=== PATIENT | male | born 1945 | race Caucasian/White ===

== ENCOUNTER → 2020-04-17 10:24 | Outpatient (CLI) | payer MEDICARE, OTHER, SELFPAY ==
--- NOTE | 2020-04-17 10:39 | DI.RAD.S_ITS ---
PROCEDURE: XR WRIST RT MIN 3V INDICATIONS: BI WRIST AND HAND PAIN/ARTHRITIS TECHNIQUE: For views of the wrist were acquired. COMPARISON: None. FINDINGS: Bones: No fractures or dislocations. No suspicious bony lesions. Severe narrowing of the radiocarpal joint. Widening of the scapholunate interval. Scaphoid view: Intact scaphoid. Soft tissues: No suspicious soft tissue calcifications. IMPRESSION: 1. Severe narrowing of the radiocarpal joint. 2. Widening of the scapholunate interval suggesting ligamentous injury. If indicated, MRI could be performed. performed. Dictated by: Arnulfo Riley [facility] Interpreted: Rancho Mobley MD on 04/17/2020 at 11:08 Approved by: Rancho Mobley M.D. on 04/17/2020 at 11:42
--- NOTE | 2020-04-17 10:39 | DI.RAD.S_ITS ---
PROCEDURE: XR WRIST LT MIN 3V INDICATIONS: BI WRIST AND HAND PAIN/ARTHRITIS TECHNIQUE: 4 views of the wrist were acquired. COMPARISON: [facility], CR, XR HAND LT MIN 3V, 04/17/2020, 10:34. FINDINGS: Bones: No fractures or dislocations. No suspicious bony lesions. Moderate narrowing of the radiocarpal joint and widening of the scapholunate interval. Scaphoid view: Intact scaphoid. Soft tissues: No suspicious soft tissue calcifications. IMPRESSION: 1. Osteoarthritic changes, most notably involving the radiocarpal joint. 2. Widening of the scapholunate interval suggesting ligamentous injury. If indicated, MRI could be performed. Dictated by: Arnulfo Riley [facility] Interpreted: Rancho Mobley MD on 04/17/2020 at 11:09 Approved by: Rancho Mobley M.D. on 04/17/2020 at 11:42
--- NOTE | 2020-04-17 10:40 | DI.RAD.S_ITS ---
PROCEDURE: XR HAND LT MIN 3V INDICATIONS: ANDREW WRIST/HAND PAIN/ARTHRITIS TECHNIQUE: 3 views of the hand(s) acquired. COMPARISON: None. FINDINGS: Bones: No fractures or dislocations. Carpal bones are normally aligned. No suspicious bony lesions. Diffuse joint narrowing with periarticular osteophyte formation, most notably involving the radiocarpal joint. Widening of the scapholunate interval. Soft tissues: No suspicious soft tissue calcifications. IMPRESSION: 1. Widening of the scapholunate interval suggesting ligamentous injury. If indicated, MRI could be performed for further assessment. 2. Diffuse joint degeneration, most notably involving the radiocarpal joint. Dictated by: Arnulfo Riley [facility] Interpreted: Rancho Mobley MD on 04/17/2020 at 11:06 Approved by: Rancho Mobley M.D. on 04/17/2020 at 11:41
--- NOTE | 2020-04-17 10:40 | DI.RAD.S_ITS ---
PROCEDURE: XR HAND RT MIN 3V INDICATIONS: BI WRIST AND HAND PAIN/ARTHRITUS TECHNIQUE: 3 views of the hand(s) acquired. COMPARISON: None. FINDINGS: Bones: No fractures or dislocations. Carpal bones are normally aligned. No suspicious bony lesions. Diffuse joint narrowing with periarticular osteophyte formation, most notably and severe involving the radiocarpal joint with [id number] contact. Soft tissues: No suspicious soft tissue calcifications. IMPRESSION: Severe widening of the scapholunate interval suggesting ligamentous injury. If indicated, MRI could be performed for further assessment. Diffuse joint degeneration, severe involving the radiocarpal joint. Dictated by: Arnulfo Riley [facility] Interpreted: Rancho Mobley MD on 04/17/2020 at 11:03 Approved by: Rancho Mobley M.D. on 04/17/2020 at 11:41
== END ==
PROVIDERS: PCP Family Medicine; Referring Provider Family Medicine; Visit Provider Family Medicine
DX: M13.831 Other specified arthritis, right wrist (principal); M13.832 Other specified arthritis, left wrist; M25.531 Pain in right wrist; M25.532 Pain in left wrist; M25.541 Pain in joints of right hand; M25.542 Pain in joints of left hand
CPT/HCPCS: 73110; 73130

== ENCOUNTER 2022-10-29 12:37 | Inpatient (IN) | payer OTHER, SELFPAY ==
[2022-10-21 09:57] VITALS: BMI 35.7
[2022-10-29] VITALS (12 sets, daily range): BP systolic 111–162; BP diastolic 42–85; PULSE 66–96; RESP 11–18; TEMP 35.8–36.7; O2SAT 93–98; BMI 36.9
--- NOTE | 2022-10-29 | DI.RAD.S_ITS ---
PROCEDURE: XR HIP W PEL IF DONE LT 2V INDICATIONS: POST OP TECHNIQUE: 2 view(s) of the hip acquired. COMPARISON: None. FINDINGS: Bones: Patient is status post left hip arthroplasty, with hardware components in expected positions. The hip joint appears congruent. The visualized bony structures appear intact. Soft tissues: Overlying postoperative changes are noted. No suspicious soft tissue densities. IMPRESSION: Expected appearance of left hip arthroplasty. Dictated by: Naomie Ignacio M.D. on 10/29/2022 at 18:04 Approved by: Naomie Ignacio M.D. on 10/29/2022 at 18:04
--- NOTE | 2022-10-29 08:06 | DI.RAD.S_ITS ---
PROCEDURE: XR PELVIS 1-2V INDICATIONS: HELGA TECHNIQUE: Intra-operative view of the pelvis and hip acquired. COMPARISON: None. FINDINGS: Bones: Intraoperative devices prior to placement of arthroplasty prostheses are in expected positions. No fractures or suspicious bony lesions. Soft tissues: Overlying surgical retractors are present, along with other intraoperative changes. IMPRESSION: Imaging obtained during performance of total left hip arthroplasty. No radiographic evidence of complications. Dictated by: Santhosh Carlson M.D. on 10/29/2022 at 17:11 Approved by: Santhosh Carlson M.D. on 10/29/2022 at 17:11
[2022-10-29] MEDS: LACTATED RINGERS 1,000 ML 125 ML IV ×4 (13:15→22:43)
[2022-10-29 13:30] LABS: COVID19 -Nasal RAPID Negative (Negative)
[2022-10-29] MEDS: CELECOXIB 200 MG CAPSULE PO (13:31)
[2022-10-29] MEDS: VANCOMYCIN 1,000 MG/200 ML PIGGYBACK 200 MG IV (13:31)
[2022-10-29] MEDS: ACETAMINOPHEN 325 MG TABLET 975 MG PO (13:31)
--- NOTE | 2022-10-29 14:33 | PM.PREOP ---
Pre-operative Note Interval Note History & Physical reviewed/Exam performed by Physician: Yes Changes to H&P: No
--- NOTE | 2022-10-29 14:33 | PM.OP.1 ---
Operative Date/Time/Diagnoses Date of procedure: 10/29/22 Time of procedure: 14:33 Pre-op diagnosis: left hip AVN Post-op diagnosis: same Procedure & Clinicians Procedure: Left total hip arthroplasty posterior approach Same procedure as scheduled: Yes Indications: The patient has had progressively worsening left hip pain with radiographic changes consistent with arthritis. Non-operative management has failed and the patient has requested total hip replacement. The risks, benefits and alternatives to surgery were discussed with the patient prior to proceeding. Risks discussed included, but were not limited to, failure to relieve pain, leg length discrepancy, dislocation, stiffness, infection, nerve damage, deep venous thrombosis, pulmonary embolism, stroke, coma, heart attack, permanent paralysis and , as well as the potential need for eventual revision of the prosthetic. Surgeon: Margoth Lofton Entry Level Manufacturing Engineer: Ivonne Arias Anesthesia Type: General and Spinal Operative Notes Findings: Small canal, severe destruction of the left femoral head, adequate bone, adequate stability Closure Type: primary Specimen(s): none sent Prosthetic devices, grafts, tissues, transplants, or devices: Lofton and nephew anthology A size 9 high offset, 54 mm R3 cup, neutral poly liner, one 6.5 mm screw, 36+ 0 cobalt chrome head Estimated Blood Loss (mL): 250 Blood products transfused: none Procedure in detail: The patient was seen in the pre-operative area, where the patient identified the left hip as the operative site and this was marked with my initials. The patient received pre-operative antibiotics and was taken to the operating room and placed on the operative table in the right lateral decubitus position after satisfactory anesthesia. A hospital clerk out? was performed. The left leg was prepared from the ankle to the iliac crest with ChloroPrep in the usual fashion and draped through sterile drapes. The hip was approached through an approximately 20 cm incision centered over the greater trochanter and curving gently posteriorly as it went proximally. This was carried sharply to the fascia teetee, which was divided and retracted with a self retaining retractor. The trochanteric bursa was excised with care being taken to avoid the sciatic nerve, which was identified and protected throughout the case. The short external rotators were incised and the capsulomuscular flap was raised and tagged for later repair. The hip was dislocated, and a femoral neck osteotomy performed approximately 15 mm above the lesser trochanter. Retractors were placed around the femur. The canal was opened with a box cutting osteotome, followed by a T handled reamer and a lateralizing reamer. The chili pepper broach was then used, followed by sequential broaching until there was good stability of the broach in the femur. Retractors were placed to expose the acetabulum. The labrum and central soft tissues were removed. There was significant cystic changes in the acetabulum and significant destruction of the acetabulum. Reaming was performed initially going up in 2 mm increments, then 1 mm increments until good bite was obtained with an odd sized reamer. The cup 1 mm larger than the last reamer was then inserted using the appropriate anteversion guides. The bone was soft and it was further stabilized with a single screw. A trial neutral liner was placed. The broach was placed in the canal. A trial head and neck were then placed and the hip relocated and checked for leg length and stability. An intraoperative film confirmed the component position and no evidence of fracture. The patient was stable in the position of sleep, of squatting, and could be put through a range of motion with 45 degrees internal rotation without dislocation. At 90 degrees flexion, internal rotation to 70 was possible before dislocation. This was felt to be satisfactory and the appropriate components were opened, and the trials were removed. The acetabular liner was impacted into position. The final stem was then impacted into the prepared femoral canal. A brief Betadine soak was performed while trialing with head options. The hip was meticulously irrigated with normal saline. Finally the femoral head was impacted onto the stem. The acetabulum was cleared of all material and the hip relocated one final time. The capsulomuscular flap was then repaired to the greater trochanter though an awl hole using the tag sutures. The short external rotators were repaired with a nonabsorbable suture. A deep drain was placed and brought out anteriorly. The fascia teetee was closed with Vicryl. The subcutaneous layer was closed with barbed sutures and SteriStrips. An Aquacel Ag dressing was applied and the patient was taken to recovery having tolerated the procedure well. Complications: none Post-operative Condition: stable Disposition: Acute Care Plan for aftercare: The patient will be maintained on a standard total hip replacement protocol with weight bearing as tolerated and posterior hip precautions. The patient will receive Aspirin and sequential compression devices for DVT prophylaxis. The patient will be discharged home when safe for the home environment.
[2022-10-29] MEDS: CEFAZOLIN 3 GM IN 0.9 % NACL 3 GM/100 ML PLAST..BAG IV ×2 (15:00→23:37)
[2022-10-29] MEDS: TRANEXAMIC ACID 1,000 MG VIAL 2000 MG INJ ×2 (15:05→16:45)
--- NOTE | 2022-10-29 15:32 | SUR.OPER ---
Lateral on padded OR bed. Gel axillary roll. Arms secured on padded armboard with pillow supporting top arm. Padded hip positioner braces x4 - anterior and posterior chest and pelvis. Additional gel pad used anterior pelvis. Gel pad under bottom leg from knee to foot and secured with tape over sheet.
[2022-10-29] MEDS: BUPIVACAINE 0.25% (PF) 60 ML, EPINEPHrine 0.3 MG INJ (15:49)
[2022-10-29] MEDS: BUPIVACAINE LIPOSOME 266 MG/20 ML VIAL INJ (15:49)
[2022-10-29] MEDS: EPINEPHrine 1 MG/10 ML SYRINGE INJ (15:52)
--- NOTE | 2022-10-29 17:48 | DI.RAD.S_ITS ---
PROCEDURE: XR CHEST 1V INDICATIONS: soa TECHNIQUE: One view of the chest was acquired. COMPARISON: None. FINDINGS: Surgical changes and devices: None. Lungs and pleura: Lungs are clear. No pleural effusions or pneumothorax. Mediastinum: Mediastinal contours appear normal. Heart size is enlarged. Bones and chest wall: No suspicious bony lesions. Overlying soft tissues appear unremarkable. IMPRESSION: 1. Cardiomegaly. 2. No acute process. Dictated by: Naomie Ignacio M.D. on 10/29/2022 at 18:05 Approved by: Naomie Ignacio M.D. on 10/29/2022 at 18:05
--- NOTE | 2022-10-29 17:48 | SUR.PHASEI ---
1748 pt c/o rt upper chest pressure and soa, lungs clear/equal bilat, NSR on monitor pt warm/pink/dry, MD Lofton notified new verbal orders taken
--- NOTE | 2022-10-29 18:08 | PM.CN ---
History of Present Illness Consult details Date Patient Seen: 10/29/22 Chief complaint: left HELGA POSTERIOR Narrative: Star Palacios is a 77yo M with PMH of chronic hip arthritis, HTN, COPD, depression and RBBB who underwent successful elective left total hip surgery due to arthritis on 10/[address] Lofton but in PACU developed chest pain. Medicine consulted for possible ACS workup. Pre-op EKG noted NSR without ST changes and RBBB. Post-op EKG appears the same. Patient says he woke up from surgery with right sided chest pressure like something sitting on my chest. He hasn't had chest pressure like this before. Nonradiating. No cardiac history in his family. Chest pain lasted for a few minutes then went away. He denies diaphoresis, NV, abd pain, diarrhea or LE swelling. Meds Home Medications and Allergies Home Medications Medication Instructions Recorded Confirmed Type ilyhkfm-hulyulrrkkamq-kiussecg 250 1 tab PO Q4-6H PRN Headache 10/21/22 10/29/22 History mg-250 mg-65 mg tablet (Excedrin Migraine) sertraline 100 mg tablet 100 mg PO DAILY 10/21/22 10/29/22 History Allergies Allergy/AdvReac Type Severity Reaction Status Date / Time No Known Drug Allergies Allergy Verified 10/29/22 13:26 Review of Systems Review of Systems Narrative: All other systems reviewed with the patient and are negative unless otherwise stated. Exam Vital Signs (past 8 hours): - 10/29/22 13:36 10/29/22 17:32 10/29/22 17:36 Temperature 97.5 F L 97.3 F L 97.2 F L Pulse Rate 90 66 67 Respiratory Rate 16 13 13 Blood Pressure 162/85 H 111/68 120/69 Pulse Oximetry 98 96 95 Oxygen Delivery Method Room Air Room Air Room Air 10/29/22 17:42 10/29/22 17:50 Temperature 97.9 F 97.9 F Pulse Rate 87 75 Respiratory Rate 16 11 L Blood Pressure 118/76 132/75 Pulse Oximetry 95 97 Oxygen Delivery Method Room Air Room Air Oxygen Delivery Method Room Air Narrative Exam Narrative: GEN: no acute distress, obese HEENT: moist mucous membranes, PERRL NECK: trachea midline, no JVD CV: regular rate and rhythm, no murmurs PULM: clear bilaterally ABD: soft, nontender, nondistended, no organomegaly EXT: warm and well perfused with no edema NEURO: awake, alert, oriented, no focal deficits Objective Labs Labs: Laboratory Results - last 24 hr 10/29/22 13:00 SARS-CoV-2 (PCR) Negative PFSH Medical History COPD (chronic obstructive pulmonary disease) Depression HTN (hypertension) RBBB Surgical History (Updated 10/29/22 @ 13:26 by Evelia Mendosa RN) History of back surgery (~1986) Social History household members: spouse Tobacco & Substance Use Smoking Status: Former smoker alcohol intake: current Assessment & Plan Assessment & Plan narrative: # post-op chest pain -right sided chest pressure noted after awakening from surgery -stat EKG shows no ST changes, stat troponin ordered. CXR shows cardiomegaly only. -trend troponins -obtain echo -place on tele -give 325mg aspirin and on aspirin 81mg BID, give nitro PRN for chest pain -may require inpatient stress test -check A1c and lipids # s/p left total hip arthroplasty -performed on 10/[address] Merle Lofton orthopedics and was straightforward without complications -management per ortho # HTN, chronic -no BP home meds listed # COPD -smoked 1ppd for 30 years, quit in 1997 # depression, chronic -continue sertraline Code status is full code. COVID negative. DVT prophylaxis with ASA BID. Proxy is Yadira. I have reviewed home meds and used all available resources to reconcile the home meds. Medicine will continue to follow. Thank you for allowing us to participate in the care of this patient. Should you have any further questions, do not hesitate to speak with us directly or call us. Time Spent With Patient Critical Care time: I spent a total of [] minutes of critical care time on this patient's care today; this time is exclusive of procedural time.
[2022-10-29] MEDS: ALBUTEROL/IPRATROPIUM 3 ML AMPUL INH (18:13)
[2022-10-29] MEDS: ASPIRIN 325 MG TABLET PO (18:51)
[2022-10-29 20:41] LABS: Troponin I < 0.012 ng/mL (0.01-0.034)
[2022-10-29 20:44] LABS: Hemoglobin A1C% w Est Avg Glu 5.7 % (4.0-6.0)
[2022-10-29 20:47] LABS: Cholesterol 183 mg/dL (140-199); HDL Cholesterol 51 mg/dL (40-60); LDL Cholesterol Calculated 103 mg/dL (<100); Triglycerides 144 mg/dL (35-150)
[2022-10-29] MEDS: NITROGLYCERIN 0.4 MG SL TAB SL (21:10)
[2022-10-29] MEDS: ACETAMINOPHEN 325 MG TABLET 650 MG PO ×2 (21:11→23:52)
[2022-10-29] MEDS: ASPIRIN EC 81 MG TABLET PO (21:11)
[2022-10-29] MEDS: IBUPROFEN 400 MG TABLET PO ×2 (21:12→23:51)
[2022-10-29] MEDS: DOCUSATE 100 MG CAPSULE PO (21:12)
[2022-10-29] MEDS: OXYCODONE IR 10 MG TABLET PO (22:42)
[2022-10-30 00:45] LABS: Troponin I < 0.012 ng/mL (0.01-0.034)
[2022-10-30 01:52] VITALS: BP 126/66; PULSE 86; RESP 15; TEMP 36.7; O2SAT 95
[2022-10-30 05:02] LABS: Hematocrit 37.9 % (41-53)
[2022-10-30 05:23] LABS: Troponin I < 0.012 ng/mL (0.01-0.034)
[2022-10-30 06:13] VITALS: BP 156/73; PULSE 85; RESP 18; TEMP 36.5; O2SAT 95
[2022-10-30] MEDS: IBUPROFEN 400 MG TABLET PO ×2 (06:14→13:19)
[2022-10-30] MEDS: ACETAMINOPHEN 325 MG TABLET 650 MG PO ×2 (06:14→13:19)
[2022-10-30] MEDS: CEFAZOLIN 3 GM IN 0.9 % NACL 3 GM/100 ML PLAST..BAG IV (06:14)
--- NOTE | 2022-10-30 06:17 | DI.ECHO.S_ITS ---
Interpretation Summary 1) Normal left ventricular thickness, size, wall motion, and systolic function (EF 65-70%). 2) Normal right ventricular size and function. 3) No significant valvular abnormalities. 4) No prior Echo available for comparison. Procedure: A two-dimensional transthoracic echocardiogram with color flow and Doppler was performed. The study quality was technically difficult. A contrast injection of Definity was performed to improve assessment of LV function. There is no prior echocardiogram noted for this patient. The patient was in sinus rhythm with heart rates between 75-96 bpm during the exam. Left Ventricle: The left ventricle is normal in size and wall thickness. The ejection fraction is estimated to be 65-70%. Left ventricular systolic function appears normal without focal wall motion abnormalities. Right Ventricle: The right ventricle is not well visualized. The right ventricle is grossly normal size. The right ventricular systolic function is normal. Atria: The left atrial size is normal. Right atrial size is normal. There is no Doppler evidence for an interatrial shunt. Mitral Valve: The mitral valve is normal in structure and function. There is trace mitral regurgitation. Aortic Valve: The aortic valve is not well visualized. There is no aortic valve stenosis. No aortic regurgitation is present. Tricuspid Valve: The tricuspid valve is not well visualized, but is grossly normal. No tricuspid regurgitation. Pulmonary artery pressures cannot be estimated because of the lack of a measurable TR jet velocity. Pulmonic Valve: The pulmonic valve is not well visualized. There is no pulmonic valvular regurgitation. Great Vessels: The aortic root is not well visualized. The dimensions of the ascending aorta are normal. The IVC is of normal diameter and collapses greater than 50% with a sniff. This suggests a low right atrial pressure of 3 mm Hg. Pericardium/ Pleura There is no pericardial effusion. There is no pleural effusion. MMode/2D Measurements & Calculations LVIDd: 5.5 cm LVOT diam: 2.3 cm IVSd: 0.94 cm asc Aorta Diam: 3.2 cm LVPWd: 0.85 cm Ao Arch Diam (Prox Trans): 3.1 cm LV hand. diameter/BSA (cm/m^2): 2.2 LA A2 area: 23.5 cm2 RA long axis: 5.2 cm LA A4 area: 19.2 cm2 RA area: 17.5 cm2 LA length (vol): 6.1 cm RA vol: 49.8 ml LA vol: 62.9 ml RA : 20.0 ml/m2 LA vol index: 25.3 ml/m2 IVC diam: 1.1 cm TAPSE: 2.6 cm Doppler Measurements & Calculations Ao V2 max: 149.0 cm/sec LVOT Max Praneeth: 109.5 cm/sec Ao V2 mean: 107.8 cm/sec LV V1 max P.8 mmHg Ao max P.9 mmHg LV V1 VTI: 24.1 cm Ao mean P.0 mmHg EDSON(I,D): 3.3 cm2 Ao V2 VTI: 31.2 cm EDSON(V,D): 3.2 cm2 sev ratio: 0.77 EDSON indexed to BSA (cm^2/m^2): 1.3 MV E max praneeth: 91.4 cm/sec PA V2 max: 134.1 cm/sec MV A max praneeth: 122.0 cm/sec PA V2 mean: 100.6 cm/sec MV E/A: 0.75 PA mean P.3 mmHg Med Peak E' Praneeth: 6.3 cm/sec PA pr(Accel): 46.5 mmHg E/E' med: 14.4 Lat Peak E' Praneeth: 6.8 cm/sec E/E' lat: 13.5 E/e' average: 14.0 MV dec time: 0.25 sec SV(OT): 103.5 ml Reading Physician:08:31 AM
--- NOTE | 2022-10-30 07:41 | P.PN_ITS ---
Subjective Subjective Date Patient Seen: 10/30/22 Interval history: Patient denies any more CP. He feels great and ready to go home today. Exam Vital Signs (past 8 hours): - 10/30/22 01:52 10/30/22 06:13 Temperature 98.1 F 97.7 F Pulse Rate 86 85 Respiratory Rate 15 18 Blood Pressure 126/66 156/73 H Pulse Oximetry 95 95 Oxygen Flow Rate 0 0 Oxygen Delivery Method Room Air Oxygen Flow Rate 0 Narrative Exam Narrative: GEN: no acute distress, obese HEENT: moist mucous membranes, PERRL NECK: trachea midline, no JVD CV: regular rate and rhythm, no murmurs PULM: clear bilaterally ABD: soft, nontender, nondistended, no organomegaly EXT: warm and well perfused with no edema NEURO: awake, alert, oriented, no focal deficits Objective Labs 10/30/22 04:37 Labs: Laboratory Results - last 24 hr 10/29/22 10/29/22 10/29/22 13:00 20:05 20:05 Hgb Hct Hemoglobin A1c 5.7 Troponin I < 0.012 Triglycerides Cholesterol LDL Cholesterol, Calc HDL Cholesterol SARS-CoV-2 (PCR) Negative 10/29/22 10/30/22 10/30/22 20:05 00:15 04:37 Hgb 13.0 L Hct 37.9 L Hemoglobin A1c Troponin I < 0.012 Triglycerides 144 Cholesterol 183 LDL Cholesterol, Calc 103 H HDL Cholesterol 51 SARS-CoV-2 (PCR) 10/30/22 04:37 Hgb Hct Hemoglobin A1c Troponin I < 0.012 Triglycerides Cholesterol LDL Cholesterol, Calc HDL Cholesterol SARS-CoV-2 (PCR) [facility], [facility] Medical History COPD (chronic obstructive pulmonary disease) Depression HTN (hypertension) RBBB Surgical History History of back surgery (~1986) Social History household members: spouse Smoking Status: Former smoker alcohol intake: current Assessment & Plan Assessment & Plan narrative: # post-op chest pain -right sided chest pressure noted after awakening from surgery -stat EKG shows no ST changes. CXR shows cardiomegaly only. -trops neg x3 -echo reassuring with normal EF 65-70% and no focal WMA's -placed on tele, no arrythmias -give 325mg aspirin and on aspirin 81mg BID, give nitro PRN for chest pain -A1c 5.7% and lipids with mildly elevated LDL of 103 -consider outpatient stress test through PCP # s/p left total hip arthroplasty -performed on 10/[address] Merle Lofton orthopedics and was straightforward without complications -management per ortho # HTN, chronic -no BP home meds listed # COPD -smoked 1ppd for 30 years, quit in 1997 # depression, chronic -continue sertraline Code status is full code. COVID negative. DVT prophylaxis with ASA BID. Proxy is Yadira. I have reviewed home meds and used all available resources to reconcile the home meds. Medicine will sign off. Thank you for allowing us to participate in the care of this patient. Should you have any further questions, do not hesitate to speak with us directly or call us. Time Spent With Patient Critical Care time: I spent a total of [] minutes of critical care time on this patient's care today; this time is exclusive of procedural time. Quality VTE Deep Vein Thrombosis/Pulmonary Embolism Present on Admission: No
[2022-10-30 08:10] LABS: Add Manual Diff / Slide Review NO; Basophils Absolute Auto 100 /uL (0-100); Basophils Percent Auto 0.5 % (0-2); Eosinophils Absolute Auto 0 /uL (0-450); Eosinophils Percent Auto 0.2 % (2-4); Hematocrit 36.9 % (41-53); Hemoglobin 12.7 g/dL (13.5-17.5); Lymphocytes Absolute Auto 1200 /uL (1100-4500); Lymphocytes Percent Auto 8.9 % (25-40); Mean Corpuscular HGB Conc 34.4 % (30-36); Mean Corpuscular Hemoglobin 33.7 PG (26-34); Mean Corpuscular Volume 97.8 fL (80-100); Monocytes Absolute Auto 800 /uL (0-900); Monocytes Percent Auto 5.7 % (3-14); Neutrophils Absolute Auto 11800 /uL (1500-7000); Neutrophils Percent Auto 84.7 % (50-75); Platelet Count 242 X10^3/uL (150-400); Red Blood Cell Count 3.77 X10^6/uL (4.5-5.9); Red Cell Distribution Width 13.2 % (11.6-14.8)
[2022-10-30 08:16] LABS: Magnesium 2.1 mg/dL (1.6-2.3)
[2022-10-30 08:18] LABS: Alanine Aminotransferase 22 IU/L (<50); Albumin 3.5 g/dL (3.5-5.0); Albumin Globulin Ratio 1.2 (1.0-2.8); Alkaline Phosphatase 65 U/L (38-126); Aspartate Aminotransferase 28 IU/L (17-59); BUN Creatinine Ratio 31.2 (6-22); Bilirubin Total 0.4 mg/dL (0.2-1.3); Blood Urea Nitrogen 24 mg/dL (9-20); Calcium 8.3 mg/dL (8.4-10.2); Carbon Dioxide 27 mmol/L (22-32); Chloride 102 mmol/L (98-107); Estimated Glomerular Filt Rate > 60 mL/min (>60); Glucose 164 mg/dL (80-110); HEMOLYSIS < 15 (0-50); Potassium 3.8 mmol/L (3.4-5.1); Sodium 135 mmol/L (137-145); Total Protein 6.5 g/dL (6.3-8.2)
--- NOTE | 2022-10-30 08:27 | PM.DS.1 ---
History of Present Illness History of Present Illness Date Patient Seen: 10/30/22 Time Patient Seen: 08:33 Chief complaint: left HELGA POSTERIOR Narrative: Patient is sitting up in bed this morning eating breakfast with at bedside. He states there was trouble controlling his pain last night after surgery but pain is now well controlled with medication. He would like to go home today after working with physical therapy. Discharge Providers Provider Primary care physician: Sher Cash DO Consults: 10/29/22 08:06 Consult to Anesthesiology Routine Comment: Consulting Provider: Anesthesiologist Reason for consultation: Regional block for post operative pain control 10/29/22 18:05 Consult to Hospitalist Service Routine Comment: Consulting Provider: Hardeep Albarran Reason for consultation: chest pain Has provider been notified: Yes 10/29/22 18:07 Consult to Hospitalist Service Routine Comment: Consulting Provider: Hardeep Albarran Reason for consultation: chest pain post-op Has provider been notified: Yes 10/29/22 18:40 Consult to Discharge Planning Routine Comment: Consult to Physical Therapy Evaluate & Treat Comment: Physician Instructions: post op HELGA protocol 10/29/22 18:59 Consult to Applications Systems Engineer Routine Comment: Discharge provider: Ivonne Arias PA-C Exam Vital Signs (past 8 hours): - 10/30/22 01:52 10/30/22 06:13 Temperature 98.1 F 97.7 F Pulse Rate 86 85 Respiratory Rate 15 18 Blood Pressure 126/66 156/73 H Pulse Oximetry 95 95 Oxygen Flow Rate 0 0 Oxygen Delivery Method Room Air Oxygen Flow Rate 0 Objective Labs 10/30/22 08:00 10/30/22 08:00 Labs: Laboratory Results - last 24 hr 10/29/22 10/29/22 10/29/22 13:00 20:05 20:05 WBC RBC Hgb Hct MCV MCH MCHC RDW Plt Count Neut % (Auto) Lymph % (Auto) Nelson % (Auto) Eos % (Auto) Baso % (Auto) Neut # (Auto) Lymph # (Auto) Nelson # (Auto) Eos # (Auto) Baso # (Auto) Sodium Potassium Chloride Carbon Dioxide BUN Creatinine Estimated GFR BUN/Creatinine Ratio Glucose Hemoglobin A1c 5.7 Calcium Magnesium Total Bilirubin AST ALT Alkaline Phosphatase Troponin I < 0.012 Total Protein Albumin Globulin Albumin/Globulin Ratio Triglycerides Cholesterol LDL Cholesterol, Calc HDL Cholesterol SARS-CoV-2 (PCR) Negative 10/29/22 10/30/22 10/30/22 20:05 00:15 04:37 WBC RBC Hgb 13.0 L Hct 37.9 L MCV MCH MCHC RDW Plt Count Neut % (Auto) Lymph % (Auto) Nelson % (Auto) Eos % (Auto) Baso % (Auto) Neut # (Auto) Lymph # (Auto) Nelson # (Auto) Eos # (Auto) Baso # (Auto) Sodium Potassium Chloride Carbon Dioxide BUN Creatinine Estimated GFR BUN/Creatinine Ratio Glucose Hemoglobin A1c Calcium Magnesium Total Bilirubin AST ALT Alkaline Phosphatase Troponin I < 0.012 Total Protein Albumin Globulin Albumin/Globulin Ratio Triglycerides 144 Cholesterol 183 LDL Cholesterol, Calc 103 H HDL Cholesterol 51 SARS-CoV-2 (PCR) 10/30/22 10/30/22 10/30/22 04:37 08:00 08:00 WBC 14.0 H RBC 3.77 L Hgb 12.7 L Hct 36.9 L MCV 97.8 MCH 33.7 MCHC 34.4 RDW 13.2 Plt Count 242 Neut % (Auto) 84.7 H Lymph % (Auto) 8.9 L Nelson % (Auto) 5.7 Eos % (Auto) 0.2 L Baso % (Auto) 0.5 Neut # (Auto) 33005 H Lymph # (Auto) 1200 Nelson # (Auto) 800 Eos # (Auto) 0 Baso # (Auto) 100 Sodium Potassium Chloride Carbon Dioxide BUN Creatinine Estimated GFR BUN/Creatinine Ratio Glucose Hemoglobin A1c Calcium Magnesium 2.1 Total Bilirubin AST ALT Alkaline Phosphatase Troponin I < 0.012 Total Protein Albumin Globulin Albumin/Globulin Ratio Triglycerides Cholesterol LDL Cholesterol, Calc HDL Cholesterol SARS-CoV-2 (PCR) 10/30/22 08:00 WBC RBC Hgb Hct MCV MCH MCHC RDW Plt Count Neut % (Auto) Lymph % (Auto) Nelson % (Auto) Eos % (Auto) Baso % (Auto) Neut # (Auto) Lymph # (Auto) Nelson # (Auto) Eos # (Auto) Baso # (Auto) Sodium 135 L Potassium 3.8 Chloride 102 Carbon Dioxide 27 BUN 24 H Creatinine 0.77 Estimated GFR > 60 BUN/Creatinine Ratio 31.2 H Glucose 164 H Hemoglobin A1c Calcium 8.3 L Magnesium Total Bilirubin 0.4 AST 28 ALT 22 Alkaline Phosphatase 65 Troponin I Total Protein 6.5 Albumin 3.5 Globulin 3.0 Albumin/Globulin Ratio 1.2 Triglycerides Cholesterol LDL Cholesterol, Calc HDL Cholesterol SARS-CoV-2 (PCR) [facility] Medical History COPD (chronic obstructive pulmonary disease) Depression HTN (hypertension) RBBB Surgical History (Updated 10/29/22 @ 13:26 by Evelia Mendosa, RN) History of back surgery (~1986) Social History household members: spouse Smoking Status: Former smoker alcohol intake: current Discharge Plan Discharge Plan Patient Disposition: Home Provider Discharge Comment: Discharge once cleared by internal medicine Discharge orders & Medications Discharge Orders: Discharge (Order); Ordered 10/30/22 Ordered By: Ivonne Arias Prescriptions: New oxycodone 5 mg Tablet 5 mg PO Q4-6H PRN (Reason: Pain, Moderate (4-6)) Qty: 40 0RF Continued sertraline 100 mg Tablet 100 mg PO DAILY Excedrin Migraine 250-250-65 mg Tablet 1 tab PO Q4-6H PRN (Reason: Headache) Follow up/Referrals: Sher Cash DO [Primary Care Provider] - Margoth Lofton MD [Physician] - As previously scheduled Diet/Activity/Treatments Diet: Diet as Tolerated Activity: Weight bearing as tolerated. Continue physical therapy and home exercise program. Cold/Heat Therapy: Ice to incision site multiple times per day. Skin/Wound/Dressing Care Report to your healthcare provider any signs of infection, such as:: chills, fever, night sweats, unusual drainage and unusual redness Dressing: Keep dressing clean, dry and intact until 2 week postoperative follow up. May shower. Visit Report/Discharge Packet Instructions: DI for Hip Replacement Stand Alone Forms: Patient Portal/API, Stroke Signs & Symptoms, Surgery Discharge Discharge Data Primary Care Provider: Sher Cash Attending Provider: Margoth Lofton Quality VTE Deep Vein Thrombosis/Pulmonary Embolism Present on Admission: No
[2022-10-30 08:28] VITALS: BP 140/70; PULSE 85; RESP 17; TEMP 36.3; O2SAT 96
--- NOTE | 2022-10-30 08:42 | PM.PNPO.1 ---
Subjective Subjective Date Patient Seen: 10/30/22 Time Patient Seen: 08:00 Interval history: Patient sitting in bed eating breakfast this morning with at bedside. He states his pain was not well controlled after surgery yesterday but is now well controlled with medication. He says he is quite stiff and is looking forward to working with physical therapy. He denies chest pain and shortness of breath. Exam Vital Signs (past 8 hours): - 10/30/22 01:52 10/30/22 06:13 Temperature 98.1 F 97.7 F Pulse Rate 86 85 Respiratory Rate 15 18 Blood Pressure 126/66 156/73 H Pulse Oximetry 95 95 Oxygen Flow Rate 0 0 Oxygen Delivery Method Room Air Oxygen Flow Rate 0 Narrative Exam Narrative: Awake, alert, and oriented. Intraoperative Aquacel dressing clean, dry, and intact. Strength and sensation intact bilateral lower extremities. Bilateral calf soft, compressible, nontender with palpable cords or masses. Objective Labs 10/30/22 08:00 10/30/22 08:00 Labs: Laboratory Results - last 24 hr 10/29/22 10/29/22 10/29/22 13:00 20:05 20:05 WBC RBC Hgb Hct MCV MCH MCHC RDW Plt Count Neut % (Auto) Lymph % (Auto) Clay % (Auto) Eos % (Auto) Baso % (Auto) Neut # (Auto) Lymph # (Auto) Clay # (Auto) Eos # (Auto) Baso # (Auto) Sodium Potassium Chloride Carbon Dioxide BUN Creatinine Estimated GFR BUN/Creatinine Ratio Glucose Hemoglobin A1c 5.7 Calcium Magnesium Total Bilirubin AST ALT Alkaline Phosphatase Troponin I < 0.012 Total Protein Albumin Globulin Albumin/Globulin Ratio Triglycerides Cholesterol LDL Cholesterol, Calc HDL Cholesterol SARS-CoV-2 (PCR) Negative 10/29/22 10/30/22 10/30/22 20:05 00:15 04:37 WBC RBC Hgb 13.0 L Hct 37.9 L MCV MCH MCHC RDW Plt Count Neut % (Auto) Lymph % (Auto) Clay % (Auto) Eos % (Auto) Baso % (Auto) Neut # (Auto) Lymph # (Auto) Clay # (Auto) Eos # (Auto) Baso # (Auto) Sodium Potassium Chloride Carbon Dioxide BUN Creatinine Estimated GFR BUN/Creatinine Ratio Glucose Hemoglobin A1c Calcium Magnesium Total Bilirubin AST ALT Alkaline Phosphatase Troponin I < 0.012 Total Protein Albumin Globulin Albumin/Globulin Ratio Triglycerides 144 Cholesterol 183 LDL Cholesterol, Calc 103 H HDL Cholesterol 51 SARS-CoV-2 (PCR) 10/30/22 10/30/22 10/30/22 04:37 08:00 08:00 WBC 14.0 H RBC 3.77 L Hgb 12.7 L Hct 36.9 L MCV 97.8 MCH 33.7 MCHC 34.4 RDW 13.2 Plt Count 242 Neut % (Auto) 84.7 H Lymph % (Auto) 8.9 L Clay % (Auto) 5.7 Eos % (Auto) 0.2 L Baso % (Auto) 0.5 Neut # (Auto) 82655 H Lymph # (Auto) 1200 Clay # (Auto) 800 Eos # (Auto) 0 Baso # (Auto) 100 Sodium Potassium Chloride Carbon Dioxide BUN Creatinine Estimated GFR BUN/Creatinine Ratio Glucose Hemoglobin A1c Calcium Magnesium 2.1 Total Bilirubin AST ALT Alkaline Phosphatase Troponin I < 0.012 Total Protein Albumin Globulin Albumin/Globulin Ratio Triglycerides Cholesterol LDL Cholesterol, Calc HDL Cholesterol SARS-CoV-2 (PCR) 10/30/22 08:00 WBC RBC Hgb Hct MCV MCH MCHC RDW Plt Count Neut % (Auto) Lymph % (Auto) Clay % (Auto) Eos % (Auto) Baso % (Auto) Neut # (Auto) Lymph # (Auto) Clay # (Auto) Eos # (Auto) Baso # (Auto) Sodium 135 L Potassium 3.8 Chloride 102 Carbon Dioxide 27 BUN 24 H Creatinine 0.77 Estimated GFR > 60 BUN/Creatinine Ratio 31.2 H Glucose 164 H Hemoglobin A1c Calcium 8.3 L Magnesium Total Bilirubin 0.4 AST 28 ALT 22 Alkaline Phosphatase 65 Troponin I Total Protein 6.5 Albumin 3.5 Globulin 3.0 Albumin/Globulin Ratio 1.2 Triglycerides Cholesterol LDL Cholesterol, Calc HDL Cholesterol SARS-CoV-2 (PCR) [facility] Medical History COPD (chronic obstructive pulmonary disease) Depression HTN (hypertension) RBBB Surgical History History of back surgery (~1986) Social History household members: spouse Smoking Status: Former smoker alcohol intake: current Assessment & Plan Post-op Postoperative Procedures: Procedures Operation Date: 10/29/22 14:15 Actual Procedure Side Surgeon p Total Hip Arthroplasty posterior Left Margoth Lofton MD Postoperative day: 1 Postoperative status: doing well Postoperative status narrative: Patient is progressing as expected after posterior left total hip arthroplasty. He had some chest pain and shortness of breath immediately after surgery and has ongoing cardiac workup. Postoperative plan narrative: Continued cardiac workup per Internal Medicine. Plan for discharge to home once safe to do so. We will work with inpatient physical therapy while in hospital, has outpatient physical therapy set up. Follow up with Orthopedics 2 weeks postop. Keep dressing clean, dry, and intact until this time. If dressing gets wet please call our office. Quality VTE Deep Vein Thrombosis/Pulmonary Embolism Present on Admission: No
[2022-10-30] MEDS: OXYCODONE IR 10 MG TABLET PO ×2 (08:43→13:18)
[2022-10-30] MEDS: ASPIRIN EC 81 MG TABLET PO (08:44)
[2022-10-30] MEDS: SERTRALINE 50 MG TABLET 100 MG PO (08:44)
--- NOTE | 2022-10-30 08:45 | PT.IIE ---
Current Diagnoses Unilateral primary osteoarthritis, left hip (10/29/22) Surgery Performed Operation Date: 10/29/22 14:15 Actual Procedures p Total Hip Arthroplasty posterior(Left) - Margoth Lofton MD Surgical History (Last Reviewed 10/30/22 @ 08:52 by Ivonne Arias PA-C) History of back surgery (~1986) Medical History (Last Reviewed 10/30/22 @ 08:52 by Ivonne Arias PA-C) COPD (chronic obstructive pulmonary disease) Depression HTN (hypertension) RBBB Physical Therapy Inpatient Evaluation/Re-Eval M1 PT/OT-IP Prior Functional Status Start: 10/30/22 12:41 Freq: NEEDED Status: Active Protocol: Document 10/30/22 08:45 AB (Rec: 10/30/22 13:06 AB [email or web address]) Medical Review Prior Functional Status Medical History Reviewed Yes Communication able to make needs known Mobility and Gait pt stated that he is modified independent with all mobilities and ambulation using 4WW Social History Household Members spouse Living Arrangements House Number of Floors (Floors) One Floor Number of Stairs To Enter/Railing? 3 steps R rail ascending to enter the house Home Environment High Toilet,Walk in Shower Home Equipment Four Wheel Walker,Straight Cane,Shower Seat with Backrest ,Hand Held Shower,Lift Recliner,Grab Bars In Shower Additional Social History Comment pt has a toilet safety frame pt's spouse already called [employer] for a FWW pt sleeps on a lift chair/ recliner M2 PT-IP Current Condition Start: 10/30/22 12:41 Freq: NEEDED Status: Active Protocol: Document 10/30/22 08:45 AB (Rec: 10/30/22 13:06 AB [email or web address]) Physical Therapy Current Condition Current Condition Evaluation Date 10/30/22 Treatment Diagnosis s/p L HELGA posterior approach; difficulty in walking Onset Date 10/29/22 M3 PT-IP Subjective Start: 10/30/22 12:41 Freq: NEEDED Status: Active Protocol: Document 10/30/22 08:45 AB (Rec: 10/30/22 13:06 AB [email or web address]) Subjective Physical Therapy Visit Type Type Initial Evaluation Visit Start Time 08:45 Visit Stop Time 10:19 Total Visit Minutes 94 Number of COAL OR ORE CONTROLLER Visits 0 Physical Therapy Visit Comments Patient Comments agreeable to do PT Therapy Pain Assessment Pain When Pain Assessed At Rest Pain Present Pain Present Pain Reported Location Chest Scale Used Numeric (0 - 10) left hip Intensity 4 Pain Management Techniques Apply Cold,Distraction, Modification of Treatment,Re- positioning,Timing of Activity with Medications M4 PT-IP Mobility and Gait Start: 10/30/22 12:41 Freq: NEEDED Status: Active Protocol: Document 10/30/22 08:45 AB (Rec: 10/30/22 13:06 AB [id number]) PT-Bed Mobility Assessment Supine to Sit Supine to Sit Moderate Assistance PT-Transfer Assessment Sit to and From Stand Sit to and from Stand Minimal Assistance,Moderate Assistance,Maximum Assistance, 1 Person Assistance,Use of Upper Extremities Equipment Transfer Assistive Device Gait Belt,Front Wheeled Walker Orthotic/Prosthetic Devices or Brace: No Transfers Transfer Destination Chair Transfer Technique ambulated Transfer Ability Level of Assist Contact Guard Assistance, Minimal Assistance,1 Person Assistance,Use of Upper Extremities Comments Mobility Comments pt in bed and spouse in room. educated on posterior hip precautions and pt needs cues to recall. pt completed supine to sit mod A and max cues. pt sleeps on a lift recliner at home. pt requesting to put his brief on and is impulsive. educated on safety. pt completed sit to stand max A and max cues. required 3 attempts to be able to stand and cues to maintain hip precautions. pt ambulated in room ~ 30 ft min A and cues for L quads activation. pt sat on chair and rested. caregiver training conducted. educated spouse on how to use sfety belt and how to assist pt. spouse was able to put safety belt on pt. assisted pt with sit to stand from the chair and ambulated pt in room ~ 25 ft using FWW CGA to min A. educated pt and spouse on stair climbing technique using R rail +SPC. pt completed sit to stand from the chiar min A with spouse assisting and ambulated to the w/c ~ 20 ft using FWW CGA. assisted pt towards the stairs. PT educated and demonstrated stair climbing techniques. pt completed up/down steps using R rail + SPC min A and max cues with PT assisting on first set and spouse assisting on 2nd set. pt unsteady on 2nd set and spouse stated that they need more practice. pt stated that he is tired. assisted pt back to his room. sit to stand from w/c min A and ambulated towards the chair using FWW CGA. positioned pt on the chair. call light and table placed within reach. caregiver training set up at 130 pm this afternoon. Gait Assessment Gait Gait Assistance Required: Contact Guard Assist,Minimum Assistance Distance (Feet) 30 Able to Maintain Weight Bearing Status Yes During Gait Assistive Devices Assistive Device Gait Belt,Front Wheeled Walker Orthotic/Prosthetic Devices or Brace: No Gait Deviations General Gait Pattern Decreased Stride Length, Decreased Feet Clearance,Step- to Gait Factors Limiting Gait Function Factors Limiting Gait Function Decreased Activity Tolerance, Decreased Strength,Difficulty Following Directions,Limited Range of Motion,Pain,Poor Balance,Poor Safety Awareness, Respiratory Distress Stair Climbing Assessment Evaluation Level of Assist On Stairs Minimal Assistance Devices Stair Climbing Assistive Devices Straight Cane,Right Railing Technique/Endurance Stair Climbing Direction Ascend and Descend Stair Climbing Technique Step to Step Number of Steps Climbed 3 Query Text: Stair Climbing Set # Repetitions (reps) 1 PT-Balance Assessment Sitting Balance and Reactions Static Sitting Balance Ability Good Dynamic Sitting Balance Ability Good Standing Balance and Reactions Static Standing Balance Ability Fair Dynamic Standing Balance Ability Poor Device Used FWW M5 PT-IP Objective Assessments Start: 10/30/22 12:41 Freq: NEEDED Status: Active Protocol: Document 10/30/22 08:45 AB (Rec: 10/30/22 13:06 AB [email or web address]) Orientation Orientation/Cognition Level of Alertness Alert Orientation Name,Place,Situation Language Function Ability No Deficits Noted Safety Awareness Decreased Safety Awareness Memory Description Short Term Impaired Gross Range of Motion Lower Extremity ROM Assessment Within Functional Limits Strength Comments Strength Comments LLE: 3+/5 RLE 4-/5 Muscle Tone Muscle Tone WNL Yes M6 PT-IP Treatment Start: 10/30/22 12:41 Freq: NEEDED Status: Active Protocol: Document 10/30/22 08:45 AB (Rec: 10/30/22 13:06 AB [email or web address]) Physical Therapy Treatment Education Education Provided Precautions,Weight Bearing Status,Post-Op Packet,Safety M7 PT-IP Assessment and Plan Start: 10/30/22 12:41 Freq: NEEDED Status: Active Protocol: Document 10/30/22 08:45 AB (Rec: 10/30/22 13:06 AB [email or web address]) PT Summary Assessment and Plan Potential Rehabilitation Potential Good Status of Condition at Evaluation Evolving Summary Impairments Pain,ROM,Strength,Balance, Coordination,Sensation,Tone, Cognition,Bed Mobility, Transfers,Gait,Activity Tolerance Assessment Summary pt needing SBA to min A with mobility and further caregiver training is needed for safe d /c. caregiver training set up for 130 pm this afternoon. will continue to assess progress. Goals Bed Mobility Goal Standby Assistance Transfer Goal Standby Assistance,Front Wheeled Walker Gait Goal Standby Assistance,Front Wheel Walker Gait Distance 150 Other Goals up/down 3 steps R rail + SPC SBA Days to Meet Goals 5 Frequency of Treatment Frequency Of Treatment Twice a Day Treatment Plan Physical Therapy Treatment Plan Bed Mobility Training,Transfer Training,Gait Training, Therapeutic Exercise,Balance Retraining,Post Op Education, Discharge Planning,Hot or Cold Pack,Neuromuscular Re-ed, Coordination Retraining,Manual Therapy Precautions Posterior Hip Precautions No Hip Flexion > 90 degrees,No Hip Internal Rotation,No Hip Adduction Weight Bearing Status Weight Bearing Status Weight Bear as Tolerated Allowed Weight Bearing Amount (enter % LLE WBAT or #) (%) Recommendations To Nursing Amount of Assist Needed 1 Person Assist Discharge Recommendations PT Discharge Recommendations Home with 07/04 Assist Available,Home Health Equipment Needed for Home Before FWW Discharge Transportation Needs at Discharge Private Vehicle,Wheelchair/ Cabulance
[2022-10-30] MEDS: DOCUSATE 100 MG CAPSULE PO (08:46)
[2022-10-30 11:00] VITALS: BP 151/70; PULSE 93; RESP 17; TEMP 36.3; O2SAT 94
--- NOTE | 2022-10-30 13:35 | PT.IPTN ---
Current Diagnoses Unilateral primary osteoarthritis, left hip (10/29/22) Surgery Performed Operation Date: 10/29/22 14:15 Actual Procedures p Total Hip Arthroplasty posterior(Left) - Margoth Lofton MD Physical Therapy Treatment Note M2 PT-IP Current Condition Start: 10/30/22 12:41 Freq: NEEDED Status: Active Protocol: Document 10/30/22 08:45 AB (Rec: 10/30/22 13:06 AB [email or web address]) Physical Therapy Current Condition Current Condition Evaluation Date 10/30/22 Treatment Diagnosis s/p L HELGA posterior approach; difficulty in walking Onset Date 10/29/22 M3 PT-IP Subjective Start: 10/30/22 12:41 Freq: NEEDED Status: Active Protocol: Document 10/30/22 13:35 AB (Rec: 10/30/22 14:37 AB [email or web address]) Subjective Physical Therapy Visit Type Type Treatment Note Visit Start Time 13:35 Visit Stop Time 14:05 Total Visit Minutes 30 Number of GLASS[employer]OR Visits 0 M4 PT-IP Mobility and Gait Start: 10/30/22 12:41 Freq: NEEDED Status: Active Protocol: Document 10/30/22 13:35 AB (Rec: 10/30/22 14:37 AB [email or web address]) PT-Transfer Assessment Sit to and From Stand Sit to and from Stand Minimal Assistance,Moderate Assistance,Maximum Assistance, 1 Person Assistance,Use of Upper Extremities Equipment Transfer Assistive Device Gait Belt,Front Wheeled Walker Orthotic/Prosthetic Devices or Brace: No Transfers Transfer Destination Chair Transfer Technique ambulated Transfer Ability Level of Assist Contact Guard Assistance,1 Person Assistance,Use of Upper Extremities Comments Mobility Comments caregiver training conducted. spouse needs re-education on how to don safety belt. spouse was able to put safety belt on. completed sit to stand from bed max a and ambulated to the chair using FWW CGA ~ 25 ft. completed up/down stair using R rail +SPC min A from spouse. repeated x 2 sets. cued spouse on how to assist pt. able to complete without cues on 2nd attempt. assisted pt back to his room. sit to stand form w/c CGA with spouse assisting and cueing and ambulated to the chair using FWW CGA with spouse assisting. call light within reach. pt and spouse without further concerns. Gait Assessment Gait Gait Assistance Required: Contact Guard Assist Distance (Feet) 25 Able to Maintain Weight Bearing Status Yes During Gait Assistive Devices Assistive Device Gait Belt,Front Wheeled Walker Orthotic/Prosthetic Devices or Brace: No Gait Deviations General Gait Pattern Antalgic,Decreased Stride Length,Decreased Feet Clearance,Step-to Gait Factors Limiting Gait Function Factors Limiting Gait Function Decreased Activity Tolerance, Decreased Strength,Limited Range of Motion,Pain,Poor Balance,Poor Safety Awareness Stair Climbing Assessment Evaluation Level of Assist On Stairs Minimal Assistance Devices Stair Climbing Assistive Devices Straight Cane,Right Railing Technique/Endurance Stair Climbing Direction Ascend and Descend Stair Climbing Technique Step to Step Number of Steps Climbed 3 Stair Climbing Set # Repetitions (reps) 2 M5 PT-IP Objective Assessments Start: 10/30/22 12:41 Freq: NEEDED Status: Active Protocol: Document 10/30/22 08:45 AB (Rec: 10/30/22 13:06 AB [email or web address]) Orientation Orientation/Cognition Level of Alertness Alert Orientation Name,Place,Situation Language Function Ability No Deficits Noted Safety Awareness Decreased Safety Awareness Memory Description Short Term Impaired Gross Range of Motion Lower Extremity ROM Assessment Within Functional Limits Strength Comments Strength Comments LLE: 3+/5 RLE 4-/5 Muscle Tone Muscle Tone WNL Yes M6 PT-IP Treatment Start: 10/30/22 12:41 Freq: NEEDED Status: Active Protocol: Document 10/30/22 13:35 AB (Rec: 10/30/22 14:37 AB [email or web address]) Physical Therapy Treatment Education Education Provided Precautions,Safety M7 PT-IP Assessment and Plan Start: 10/30/22 12:41 Freq: NEEDED Status: Active Protocol: Document 10/30/22 13:35 AB (Rec: 10/30/22 14:37 AB [email or web address]) PT Summary Assessment and Plan Potential Rehabilitation Potential Fair Summary Impairments Pain,ROM,Strength,Balance, Coordination,Sensation,Tone, Cognition,Bed Mobility, Transfers,Gait,Activity Tolerance Progress Towards Goals Slow Progress due to Activity Tolerance,Slow Progress - Other Assessment Summary caregiver training conducted and spouse was able to assist pt with mobility. spouse stated that they have friends/ neighbors who can also assist if needed . Goals Bed Mobility Goal Standby Assistance Transfer Goal Standby Assistance,Front Wheeled Walker Gait Goal Standby Assistance,Front Wheel Walker Gait Distance 150 Other Goals up/down 3 steps R rail + SPC SBA Days to Meet Goals 5 Frequency of Treatment Frequency Of Treatment Twice a Day Treatment Plan Physical Therapy Treatment Plan Bed Mobility Training,Transfer Training,Gait Training, Therapeutic Exercise,Balance Retraining,Post Op Education, Discharge Planning,Hot or Cold Pack,Neuromuscular Re-ed, Coordination Retraining,Manual Therapy Precautions Posterior Hip Precautions No Hip Flexion > 90 degrees,No Hip Internal Rotation,No Hip Adduction Weight Bearing Status Weight Bearing Status Weight Bear as Tolerated Allowed Weight Bearing Amount (enter % LLE WBAT or #) (%) Discharge Recommendations PT Discharge Recommendations Home with 07/04 Assist Available,Home Health Equipment Needed for Home Before FWW Discharge Transportation Needs at Discharge Private Vehicle,Wheelchair/ Cabulance
--- NOTE | 2022-10-30 15:22 | CM.DANOTE ---
Initial DCP Assessment Note Plan: Discharge home w/spouse today. Cleared by therapies for this plan. Patient discharged w/spouse before a conversation held with this TICKET MARKER re HH services. Primary care provider or Ortho team can make HH referral in the outpatient setting as needed SONIA Discharge Planning/Care Management CM Discharge Assessment Start: 10/30/22 13:15 Freq: Status: Active Protocol: Document 10/30/22 13:15 SONIA (Rec: 10/30/22 13:30 SONIA [id number]) Discharge Planning Assessment Assigned Plant Inspector KURT Menard DPOA/Assigned Designee Name Yadira Palacios, spouse Contact Information [phone] Advance Directives? Yes Advance Directives on File No: states full code History Provided By Patient,Medical Record Prior Living Arrangements House Household Members spouse Type of transporation used prior to Drives own vehicle admit Independent with ADL's Yes: Mod Indp Is patient alert and oriented? Yes Needs Assistance With Meal Prep,Home Chores / Shopping Patient/Family Preference Home with Home Health Barriers to Discharge No Comment Home w/spouse and HH expected, likely today after caregiver training w/spouse. Will plan to discuss HH service options with patient and spouse Discharge Plan Home with Home Health Transportation Arrangement Spouse Referrals Initiated Home Health Additional Comment Will plan to review HH services and agency options w/ patient and spouse today Whiteboard Updated in Patient Room with Yes name and ext. # of Plant Inspector
--- NOTE | 2022-10-30 16:27 | PC.NURSE ---
Pt is A&OX3, VSS, afebrile on RA. Slightly hyptertensive per baseline. He verbalizes pain is well controlled with scheduled and PRN pain medications. He is able to tolerate all of breakfast and denies n/v, and is voiding without difficulty.+CMS to BLE's. He is cleared by Ortho for discharge home pending PT/OT and hospitalist after echo results reviewed today. He completes and afternoon session with PT after a.m. session and is cleared for discharge home. at bedside supportive. Patient and verbalize understanding of discharge medications, hip precautions, site care, s/sx of infection/complications as well as follow up care. He is escorted via w/ch to private vehicle with for discharge home this afternoon at approximately 1444 pm.
== END 2022-10-30 14:44 | disposition home or self-care (01) | DRG 470 ==
LOC: OR 12:38 → AC 10-30 08:28
PROVIDERS: Student in an Organized Health Care Education/Training Program; Admitting Provider Orthopaedic Surgery; PCP Family Medicine; Referring Provider Orthopaedic Surgery; Visit Provider Orthopaedic Surgery
PROC: 0SRB0JZ Replacement of Left Hip Joint with Synthetic Substitute, Open Approach (ICD-10-PCS; CPT 27130; principal; 2022-10-29 14:15)
DX: M16.12 Unilateral primary osteoarthritis, left hip (principal); M87.852 Other osteonecrosis, left femur; J44.9 Chronic obstructive pulmonary disease, unspecified; E66.9 Obesity, unspecified; I10 Essential (primary) hypertension; F32.A Depression, unspecified; I45.10 Unspecified right bundle-branch block; Z20.822 Contact with and (suspected) exposure to COVID-19; R07.89 Other chest pain; Z79.899 Other long term (current) drug therapy; Z68.37 Body mass index [BMI] 37.0-37.9, adult; Z87.891 Personal history of nicotine dependence; Z98.1 Arthrodesis status
CPT/HCPCS: 36415; 71045; 72170; 73502; 80053; 80061; 83036; 83735; 84484; 85014; 85018; 85025; 87635; 93005; 93010; 93306; 94640; 97116; 97162; 97530; C1776; C9290; J0171; J0690; J1100; J2250; J2405; J2704; J3010

== ENCOUNTER 2022-11-01 12:24 | Emergency (ER) | payer OTHER, SELFPAY ==
[2022-10-29 16:19] VITALS: BMI 36.9
[2022-11-01 12:45] VITALS: BP 166/70; PULSE 90; RESP 16; TEMP 36.2; O2SAT 97; BMI 36.9
--- NOTE | 2022-11-01 13:35 | PC.NURSE ---
Patient sitting up in stretcher. Pt has intact dorsalis pedis pulses by palpation bilaterally, CMS intact, able to wiggle toes without issue. Edema noted to left lower extremity, mentioned left leg is a different color than right, educated on the orange chlorhexidine used in procedure. Assessed Left Hip dressing, drainage noted withing the boarders of surgical dressing. Educated pt and spouse on orders for labs and ultrasound, educated pt on risks of infection and blood clots. Pt verbalizes understanding of education, states he does not wish to stay here for interventions or treatment. Dr. Knutson notified.
--- NOTE | 2022-11-01 13:49 | PC.NURSE ---
Pt dressed self and assisted self to a wheelchair, assisted pt out. Pt and state they are choosing to leave, educated that if they feel they need to return they are welcome, understanding verbalized.
== END 2022-11-01 13:50 | disposition left against medical advice (07) ==
PROVIDERS: Emergency Provider Emergency Medicine; PCP Family Medicine
CPT/HCPCS: 99281

== ENCOUNTER 2022-11-04 08:35 | Emergency (ER) | payer OTHER, SELFPAY ==
[2022-10-29 16:19] VITALS: BMI 36.9
[2022-11-04] VITALS (9 sets, daily range): BP systolic 151–171; BP diastolic 66–77; PULSE 67–82; RESP 12–21; TEMP 36.4; O2SAT 94–99; BMI 36.9
--- NOTE | 2022-11-04 08:56 | DI.US.S_ITS ---
PROCEDURE: US PERIPH VENOUS LOW EXTREM LT INDICATIONS: SWELLING. RECENTLY POST LEFT HIP SURGERY TECHNIQUE: Real-time imaging, as well as color and pulse Doppler interrogation, were performed of the lower extremity deep veins from the inguinal ligament to the popliteal fossa. COMPARISON: None. FINDINGS: The distal most segment of the superficial femoral vein is not well seen. The remaining common femoral, femoral and popliteal vein segments appear normally compressible with no echogenic intraluminal thrombus demonstrated. These segments of the veins demonstrate normal color and pulse Doppler phasic intraluminal flow. There is normal augmentation response to distal compression maneuver. IMPRESSION: Distal superficial femoral vein is not visualized. No findings of DVT in the visualized left lower extremity veins. Dictated by: Pietro Zhou M.D. on 11/04/2022 at 9:32 Approved by: Pietro Zhou M.D. on 11/04/2022 at 9:36
--- NOTE | 2022-11-04 08:56 | DI.RAD.S_ITS ---
PROCEDURE: XR HIP W PEL IF DONE LT 2V INDICATIONS: L leg swelling, recent HELGA, sent by ortho TECHNIQUE: 2 views of the hip were acquired. COMPARISON: [facility], [place], XR HIP W PEL IF DONE LT 2V, 10/29/2022, 17:34. FINDINGS: Postsurgical changes of left total hip replacement with expected appearance of hardware and expected overlying soft tissue changes. No [place] bone fracture or acute complicating feature identified. IMPRESSION: Expected appears status post left total hip arthroplasty. Dictated by: Pietro Zhou M.D. on 11/04/2022 at 10:09 Approved by: Pietro Zhou M.D. on 11/04/2022 at 10:09
--- NOTE | 2022-11-04 08:57 | ED.EXTPRO ---
HPI - Extremity Problem General Chief complaint: Extremity Injury, Lower Stated complaint: post op 10/29 swelling is getting worse Time Seen by Provider: 11/04/22 08:40 History of Present Illness HPI Narrative: 77M former smoker without known significant chronic medical history presents at the request of his orthopedic surgeon for evaluation of left lower extremity swelling and some pain which has been gradually worsening. He recently had a left total hip due to osteoarthritis. Patient states he is had no fall or injury and has had increasing pain and is here to evaluate for the potential of blood clot versus other. He is otherwise well and denies any dizziness, weakness or lightheadedness. He is had no runny nose, sore throat or cough. He denies chest pain, shortness of breath or near-syncope. He is had no nausea, vomiting or diarrhea. He does have some pain but states it is nothing significant. He does admit to some bruising that is purplish in nature and has settle down to his knee. Related Data Home Medications Medication Instructions Recorded Confirmed eyovhem-rdvonrnpqtjxu-ysywnlej 250 1 tab PO Q4-6H PRN Headache 10/21/22 10/29/22 mg-250 mg-65 mg tablet (Excedrin Migraine) sertraline 100 mg tablet 100 mg PO DAILY 10/21/22 10/29/22 Previous Rx's Medication Instructions Recorded oxycodone 5 mg tablet 5 mg PO Q4-6H PRN Pain, Moderate 10/30/22 (4-6) #40 tabs Allergies Allergy/AdvReac Type Severity Reaction Status Date / Time No Known Drug Allergies Allergy Verified 10/29/22 13:26 Review of Systems Review of Systems Narrative: GENERAL: Denies chills, fatigue, malaise, fever, sweats. HEENT: Denies sinus pain, ear pain, sore throat, difficulty swallowing, dizziness. RESPIRATORY: Denies dyspnea, cough, wheezing, hemoptysis, sputum. CARDIOVASCULAR: Denies chest pain, palpitations, orthopnea, edema, GASTROINTESTINAL: Denies nausea, vomiting, abdominal pain, diarrhea, constipation, melena. : Denies dysuria, frequency, incontinence, hematuria, urinary retention. MUSCULOSKELETAL: See HPI SKIN: Denies rash, skin lesions, or other NEUROLOGIC: Denies weakness, headache, numbness, change in speech, confusion, seizures, incoordination. PSYCHIATRIC: No concerning psychosocial issues. 12 point review of systems is negative except for those stated above Patient History Medical History COPD (chronic obstructive pulmonary disease) Depression HTN (hypertension) RBBB Surgical History History of back surgery (~1986) Social History household members: spouse Smoking Status: Former smoker alcohol intake: current Smoking Status: Former smoker alcohol intake frequency: 3 or more drinks per day Substance Use Type: other Exam Narrative Exam Narrative: GENERAL: [77] year old patient appears stated age. Well-developed patient, in mild distress. HEAD: Atraumatic. Normocephalic. EYES: Pupils equal round and reactive. Extraocular motions intact. No scleral icterus. No injection or drainage. ENT: Nose without bleeding, purulent drainage. Throat without erythema, tonsillar hypertrophy or exudate. Airway patent. NECK: Trachea midline. Non tender CARDIOVASCULAR: Regular rate and rhythm without murmurs, gallops, or rubs. RESPIRATORY: Clear to auscultation. Breath sounds equal bilaterally. No wheezes, rales, or rhonchi. GASTROINTESTINAL: Abdomen soft, non-tender, nondistended. EXTREMITIES: Full but slightly painful range of motion at left hip, incision is clean, dry and intact, there is swelling which is essentially circumferential of left lower extremity, compartments are soft, there is minimal pain, ecchymosis purplish in nature noted superior medial knee, sensation and strength intact BACK: Nontender without deformity or crepitance. No flank tenderness. NEURO: AOx3. SKIN: No rash or erythema of visible areas Initial Vital Signs Initial Vital Signs: Vital Signs Temperature 97.6 F 11/04/22 08:40 Pulse Rate 76 11/04/22 08:40 Respiratory Rate 18 11/04/22 08:40 Blood Pressure 171/77 H 11/04/22 08:40 Pulse Oximetry 99 11/04/22 08:40 Oxygen Delivery Method 11/04/22 08:40 Course Orders Ordered: ED Orders 11/04/22 08:56 US periph venous low extrem lt Stat XR hip w pel if done LT 2V Stat 11/04/22 10:36 Consult to MARINE SPECIALIST - General Road Supervisor Stat Consultations Consultation #1: Discussed with on-call orthopedist, Dr. Lofton, no further workup needed, will see at planned visit Vital Signs Vital signs: Vital Signs - 8 hr 11/04/22 08:40 11/04/22 08:51 11/04/22 08:53 Temperature 97.6 F Pulse Rate 76 82 Respiratory Rate 18 20 Blood Pressure 171/77 H 171/77 H Pulse Oximetry 99 Oxygen Delivery Method Room Air 11/04/22 08:53 11/04/22 09:00 11/04/22 09:00 Temperature Pulse Rate 76 75 Respiratory Rate 21 19 Blood Pressure 155/73 H Pulse Oximetry 98 98 Oxygen Delivery Method 11/04/22 09:30 11/04/22 09:31 11/04/22 09:31 Temperature Pulse Rate 76 77 Respiratory Rate 12 15 Blood Pressure 151/66 H Pulse Oximetry 98 99 Oxygen Delivery Method 11/04/22 10:00 11/04/22 10:30 11/04/22 12:29 Temperature Pulse Rate 70 67 77 Respiratory Rate 18 19 20 Blood Pressure 158/67 H Pulse Oximetry 95 97 94 Oxygen Delivery Method Room Air MDM - Extremity (Nontraumatic) MDM Narrative Medical decision making narrative: [77-year-old male with increasing leg pain and swelling since left hip surgery] Multiple etiologies for patient's symptoms considered including, but not limited to: [DVT, infectious etiology, pulmonary embolism, expanding hematoma versus other] Prior Charts reviewed: Primary ortho notes reviewed Imaging reviewed: X-ray with expected findings, ultrasound without obvious DVT Patient with ipsilateral pain and swelling with recent hip surgery. No new trauma, patient able to ambulate, no chest pain or shortness of breath. Multiple diagnoses considered including DVT, hematoma, infection versus other. Ultrasound is reassuring and x-ray shows appropriate alignment. He has no systemic complaints such as dizziness, weakness, lightheadedness, chest pain or shortness of breath, anemia, pulmonary embolism thought extremely unlikely. Ultrasound demonstrates no obvious clot, exam consistent with likely fcvj-cs-hiiymgnj hematoma, compartments are soft, no signs of infection such as redness or warmth. Patient is having some disagreements at home with , has full capacity to make his decisions, able to perform ADLs,, does not wish to pursue nor is he a candidate for a rehab facility. MARINE SPECIALIST has evaluated patient, please see their note for full details Findings and discharge diagnosis discussed with patient/family followed by verbalization of understanding Return precautions discussed with patient/family whom verbalize understanding of diagnosis and plan Discharge Plan Departure Patient Disposition: Home Clinical Impression: Left leg swelling Instructions: DI for Leg Pain Activity Restrictions/Additional Instructions: *You have been diagnosed with [Left leg swelling, post surgery. There is no evidence of deep clot or hardware problem. ] *What to do: *Please continue to take your regular medications as directed. *Please follow up with your primary care provider in 2-3 days, call for an appointment. Let them know you were seen in the Emergency Department and that we ask that you be seen in follow up. We will electronically transmit a record of today's note if your PCP is in our system *If you do not have a primary care provider please contact the [facility] Resource line at [phone]. They will ask some questions about your medical history and help get you set up with a doctor in the community. *Return to Emergency Department if you should have any new, worsening or concerning symptoms, such as [fever greater than 101 F, shaking chills, worsening pain, persistent vomiting or other bothersome symptoms] Prescriptions: No Action sertraline 100 mg Tablet 100 mg PO DAILY Excedrin Migraine 250-250-65 mg Tablet 1 tab PO Q4-6H PRN (Reason: Headache) oxycodone 5 mg Tablet 5 mg PO Q4-6H PRN (Reason: Pain, Moderate (4-6)) Qty: 40 0RF Referrals: Sher Cash DO [Primary Care Provider] - Stand Alone Forms: Patient Portal/API
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
== END 2022-11-04 12:31 | disposition home or self-care (01) ==
PROVIDERS: Emergency Provider Emergency Medicine; PCP Family Medicine
DX: R22.42 Localized swelling, mass and lump, left lower limb (principal)
CPT/HCPCS: 73502; 93971; 99283

== ENCOUNTER → 2023-03-28 15:42 | Outpatient (CLI) | payer OTHER, SELFPAY ==
[2022-10-29 16:19] VITALS: BMI 36.9
--- NOTE | 2023-03-28 | DI.MRI.S_ITS ---
PROCEDURE: MR LUMBAR SPINE WO CON INDICATIONS: HSTORY OF L4-5 FUSTION AND L3-4 SPODYLOLISTHESIS TECHNIQUE: Noncontrast sagittal T1 spin echo and T2 fast echo, sagittal STIR, and T2 fast spin echo through the lumbar spine. In cases with scoliosis, additional coronal T2 fast spin echo may be performed. COMPARISON: [facility], [place], XR LUMBAR SPINE 2 OR 3 VIEWS, 03/20/2023, 11:09. FINDINGS: Image quality: There is artifact associated with the metallic hardware. Alignment and Curvature: Mild dextroconvex scoliotic curvature is seen. There is minimal retrolisthesis seen at T12-L1, L1-L2, and L2-L3. Minimal anterolisthesis is seen at L4-L5. Bone Marrow: Marrow is of normal overall signal. No acute vertebral body compression fractures. Spinal Cord: Conus medullaris terminates at the L1 level. Visualized cord demonstrates normal signal and size. Paraspinous Soft Tissues: No paravertebral masses. T12-L1: At least moderate loss of disc height and disc signal can be seen. Reactive marrow endplate changes are seen, which are hyperintense on T1-weighted and T2-weighted imaging and most consistent with fatty metaplasia (Modic type II changes). Mild to moderate disc bulge is seen, with a mild central disc protrusion. There is vtuh-wh-uzuvwker right-sided and no left-sided neural foraminal narrowing. Mild to moderate central canal narrowing can be seen. L1-L2: Moderate loss of disc height is seen. Loss of disc signal is seen. Reactive marrow endplate changes are seen, which demonstrate mixed T1 weighted and T2-weighted signal, and are attributed to a combination of edema and fatty metaplasia (Modic type I and Modic type II changes). Moderate disc bulge is seen, which is eccentric to the left. Mild facet joint hypertrophy is seen. There is at least moderate bilateral neural foraminal narrowing seen. Moderate central canal narrowing is seen. L2-L3: Mild loss of disc height is seen. Loss of disc signal is seen. Reactive marrow endplate changes are seen, which are hyperintense on T1-weighted and T2-weighted imaging and most consistent with fatty metaplasia (Modic type II changes). Moderate generalized disc bulge is seen. Moderate bilateral neural foraminal narrowing is seen. At least moderate loss of disc height and disc signal can be seen. L3-L4: The disc height is well-preserved. Loss of disc signal is seen at this level. Moderate generalized disc bulge is seen. There is moderate to severe right-sided and at least moderate left-sided neural foraminal narrowing. There is a degree of compression seen upon the exiting nerve roots. Evaluation of the central canal is limited, secondary to prominent susceptibility artifact, there is believed to be at least moderate to severe central canal narrowing. L4-L5: Postoperative changes are seen at this level, with bilateral pedicle screws and vertical fixation rods. At least moderate bilateral neural foraminal narrowing can be seen. The central canal is not were evaluated, yet is believed to be moderately narrowed. L5-S1: The disc height is well-preserved. Loss of disc signal is seen at this level. Mild generalized disc bulge is seen. There is a superimposed central disc protrusion. There is a focal annular fissure seen posteriorly. The neural foraminal are not well evaluated. There is believed to be at least moderate bilateral neural foraminal narrowing. Central canal is not well seen, yet is believed to be moderately narrowed. IMPRESSION: L4-L5 postoperative hardware, with associated susceptibility artifact. Lumbar spine degenerative changes are seen, which are regarded to be worst at the L3-L4 level. Dictated by: Basilio Regan M.D. on 03/28/2023 at 16:28 Approved by: Basilio Regan M.D. on 03/28/2023 at 16:33
== END ==
PROVIDERS: PCP Family Medicine; Referring Provider Orthopaedic Surgery; Visit Provider Orthopaedic Surgery
DX: M43.16 Spondylolisthesis, lumbar region (principal); Z96.642 Presence of left artificial hip joint; Z98.1 Arthrodesis status; M47.816 Spondylosis without myelopathy or radiculopathy, lumbar region
CPT/HCPCS: 72148